=== PATIENT | male | born 1950 | race Caucasian/White ===

== ENCOUNTER 2020-09-29 08:22 | Outpatient (CLI) | payer MEDICARE, OTHER, SELFPAY ==
--- NOTE | ~2020-09-29 | CT_ITS ---
EXAMINATION: CT lung screening DATE: 09/29/2020 08:43 INDICATION: Personal history of nicotine dependence, prior smoker with 60 pack year history TECHNIQUE: Computed tomography (CT) of the chest was performed without intravenous contrast. The dose -length product (DLP) was 442.35 mGy-cm. Automated exposure control and iterative reconstruction tech [employer] were employed. COMPARISON: 06/09/2019 FINDINGS: There are new 5 mm nodules in the left upper lobe on images 31 and 33. A stable 5 mm nodule is seen in the minor fissure. There is moderate emphysema. No pleural effusion or pneumothorax is id entified. There is left-sided enlargement of the heart. Coronary artery atherosclerosis is noted. A d ual lead pacemaker of the left chest wall ends with its leads in the right atrium and right ventricle . There are no pathologically enlarged thoracic lymph nodes. Calcified pulmonary nodules and calcifie d mediastinal lymph nodes are consistent with old granulomatous disease. There is moderate thoracic s pondylosis. IMPRESSION: 1. Lung-RADS category 3: Probably benign. Followup with noncontrast low-dose chest CT in 6 months is recommended. Reviewed, dictated and finalized at location A. INSURANCE CLAIMS ADJUSTER IMPRESSION: 1. Lung-RADS category 3: Probably benign. Followup with noncontrast low-dose ch est CT in 6 months is recommended.
--- NOTE | ~2020-09-29 | US_ITS ---
EXAMINATION: US aorta [facility] scrn DATE: 09/29/2020 09:04 INDICATION: Screening for cardiovascular disease with risk factors of obesity, prior smoking and hype rcholesterolemia. TECHNIQUE: Grayscale, color Doppler, and pulsed Doppler images of the aorta and common iliac arteries were obtained. COMPARISON: None. FINDINGS: The proximal aorta measures 2.7 cm. The mid aorta measures 2.1 cm. The distal aorta measures 2.0 cm. The right common iliac artery measures 1.2 cm. The left common iliac artery measures 1.3 cm. IMPRESSION: 1. Normal caliber abdominal aorta. No aneurysm. Reviewed, dictated and finalized at location A. S TINTER
== END 2020-09-29 08:23 | disposition home or self-care (01) ==
LOC: ANHIMG 08:29
PROVIDERS: PCP Family Medicine; Visit Provider Family Medicine
DX: Z12.2 Encounter for screening for malignant neoplasm of respiratory organs (principal); Z13.6 Encounter for screening for cardiovascular disorders; Z87.891 Personal history of nicotine dependence
CPT/HCPCS: 76706; G0297

== ENCOUNTER 2021-09-19 10:12 | Outpatient (CLI) | payer MEDICARE, OTHER, SELFPAY ==
[2021-09-19 10:35] LABS: Hematocrit 46.2 % (42.0-52.0); Hemoglobin 15.5 g/dL (14.0-18.0); Mean Corpuscular HGB Conc 33.5 g/dl (32-36); Mean Corpuscular Hemoglobin 32.8 pg (26-34); Mean Corpuscular Volume 97.9 fl (80-100); Mean Platelet Volume 10.5 fl (7.4-10.4); Platelet Count Result 222 k/mm3 (150-375); Red Blood Count 4.72 M/mm3 (4.6-6.20); Red Cell Distribution Width 14.4 % (11.5-14.5); White Blood Count 4.6 K/mm3 (4.5-10.0)
[2021-09-19 10:48] LABS: Alanine Aminotransferase 21 U/L (4-50); Albumin Level 4.2 g/dL (3.5-5.1); Alkaline Phosphatase 107 U/L (38-126); Anion Gap 8 mmol/L (8-16); Aspartate Amino Transferase 31 U/L (17-59); Blood Urea Nitrogen 15 mg/dL (9-20); Calcium 9.5 mg/dL (8.4-10.2); Carbon Dioxide 26 mmol/L (22-30); Chloride 104 mmol/L (98-107); Cholesterol 124 mg/dL (0-200); Estimated Glomerular Filt Rate 60; Glucose 119 mg/dL (65-110); HDL Direct 42 mg/dL; Potassium 4.2 mmol/L (3.4-5.0); Sodium 138 mmol/L (137-145); Triglycerides 68 mg/dL (<150)
[2021-09-19 10:49] LABS: Add Urine Microscopic? YES; Appearance Urine Clear (Clear); Bacteria Urine Trace /hpf; Bilirubin Urine Negative (Negative); Blood Urine Negative (Negative); Color Urine Yellow (Yellow); Glucose Urine UA 3+ mg/dL (Negative); Ketones Urine Negative (Negative); Leukocyte Esterase Ur Negative LEU/UL (NEGATIVE); Mucus Urine Rare /lpf; Nitrate Urine Negative (Negative); Protein Urine Negative (Negative); RBC Urine 0-2 /hpf (0-2); Specific Grav Ur 1.021 (1.001-1.035); Squamous Epithelial Cell Urine Rare /hpf (Few); Urobilinogen Urine Negative mg/dL (<2.0); WBC Urine 0-3 /hpf (0-3)
[2021-09-19 10:59] LABS: LDL Cholesterol Direct 58 mg/dL
== END 2021-09-19 10:13 | disposition home or self-care (01) ==
PROVIDERS: PCP Family Medicine; Visit Provider Family Medicine
DX: I11.9 Hypertensive heart disease without heart failure (principal); E78.2 Mixed hyperlipidemia; E03.9 Hypothyroidism, unspecified; Z00.00 Encounter for general adult medical examination without abnormal findings
CPT/HCPCS: 36415; 80053; 80061; 81001; 84443; 85027

== ENCOUNTER 2021-09-26 10:29 | Outpatient (CLI) | payer MEDICARE, OTHER, SELFPAY ==
--- NOTE | ~2021-09-26 | CT_ITS ---
EXAMINATION: CT lung screening DATE: 09/26/2021 10:48 INDICATION: pers hx of nicotine dependence TECHNIQUE: Computed tomography (CT) of the chest was performed without intravenous contrast. Addition al 3D reconstructions utilizing coronal maximum intensity projection (MIP) were performed. Automated exposure control and iterative reconstruction technique were employed. The dose-length product was 42 8.87 mGy-cm. COMPARISON: 09/29/2020 FINDINGS: Moderate emphysema. Subtle small calcified nodules in the right upper lung along with calcified right hilar and mediastinal lymph nodes as well as a few splenic calcifications, all consistent with old g ranulomatous disease. New bandlike region of atelectasis in the right middle lobe along the major fis sure. Interval increase in size of a pair of previously 5 mm nodules in the anterior segment of the l eft upper lobe currently measuring 1.4 and 1.5 cm respectively now becoming contiguous with lobular a nd mildly spiculated margins. Heart size is normal with left atrial enlargement. There are a pair of cardiac asymmetric or/defibrillator leads one terminating at the right atrial appendage and the other at the apex of the right ventricle. Both leads appear disconnected with proximal lead tips projectin g anterior to the lateral left clavicle on the watch crystal edge grinder topogram. No pathologically enlarged thoracic or supraclavicular lymphadenopathy. Gallstones at the dependent fundus of the normal-appearing gallblad attila. Visualized upper abdomen is otherwise unremarkable. Mild thoracic kyphosis with moderate spondyl osis. Chronic mild anterior wedging at T9, T11 and T12. IMPRESSION: 1. Lung-RADS category 4X: Very suspicious. >15% chance of malignancy. Recommend CT-guided biopsy. Dr. Jacobs discussed these findings with the Nathan Nur the PA with Dr. Espino at 2:15 PM. 2. Moderate emphysema. Reviewed, dictated and finalized at location H. RETE SPREADER
== END 2021-09-26 10:30 | disposition home or self-care (01) ==
LOC: ANHIMG 10:32
PROVIDERS: PCP Family Medicine; Visit Provider Family Medicine
DX: Z12.2 Encounter for screening for malignant neoplasm of respiratory organs (principal); Z87.891 Personal history of nicotine dependence; J43.9 Emphysema, unspecified
CPT/HCPCS: 71271

== ENCOUNTER 2021-10-05 01:44 | Outpatient (CLI) | payer MEDICARE, OTHER, SELFPAY ==
[2021-10-03 10:06] VITALS: BMI 42.2
--- NOTE | 2021-10-03 10:18 | PC.NURSE ---
Report to the Outpatient Waiting Room, entrance under the green pavilion located off [facility], at time __0900 on date _10/05/21 . OR Time: __1100 . - You and your visitor will be asked a series of questions to screen for COVID 19 for your protection. - A mask is required within the hospital. - Only one visitor is allowed at this time. Patient visitors will be guided where to wait when not with patient. Preoperative COVID Testing Requirements: No COVID Test needed if: (proof is required; if not received patient will have Rapid Test prior to entry) NPO 6 HOURS TO PROCEDURE - Patient has received COVID Vaccine at least 14 days prior to procedure date or - Patient has positive COVID test result within last 90 days of surgery date. COVID Test needed if above criteria is not met If not COVID vaccinated a COVID test must be conducted within 72 hours of surgery and patient is asked to isolate self from time of testing until procedure. You will go to the [employer] [facility] Testing Site for your COVID testing. The [employer] [facility] is located at the corner of [address] [facility]. You will only be called if COVID results are positive and your surgeon may reschedule your elective surgery date. Patients may have clear liquids (water, carbonated beverages, clear teas, apple juice) until 3 hours prior to surgery with a maximum of 20 ounces. - No food from midnight until time of surgery - Infants may have breast milk until 4 hours before surgery, formula 6 hours prior to surgery. - Children will be allowed to drink immediately following surgery. If applicable, please bring a bottle or sippy cup to assist with drinking. Juice, water, soda, and popsicles are readily available. For infants on formula, please bring formula the day of surgery. Pacifiers are allowed. Take the following medications with a SIP of water the morning of surgery: ___ROUTINE AM MEDS Medications to discontinue per physician PRADAXA 5 DAYS PRE OP Date to take last dose_09/29/21 Please no make-up, nail gabonese, hairspray, perfume, deodorant, or body powder the day of surgery. No jewelry (including any body piercings) or valuables the day of surgery, leave them at home. Please take a shower or bath the night before, or the morning of, surgery with an antibacterial soap. Wear comfortable, loose fitting clothing. Children are encouraged to wear pajamas. - Jewelry must be removed prior to entering the operating room. Rings and piercings that are not removed may be cut off. - The hospital will not accept responsibility for valuables. - Please leave all valuables, including medications, at home the day of surgery. If you are going home after surgery, a licensed bulk driver must drive you home. - NO public transportation without another adult. - We recommend that an adult stay with you for 24 hours following discharge. - We also recommend that you do not drive, make important decision, drink alcoholic beverages, or take any drugs that were not prescribed by your health care provider for at least 24 hours after your discharge time. For Pediatric surgeries, we recommend two adults accompany the child home (only one inside the building at this time). Follow any additional instructions given to you from your surgeon. Telephone instructions given to __PATIENT and asked if any additional questions and then verbalized understanding. Patient advised to call surgeon office or pre surgery nurse liaison [phone] if any additional questions.
--- NOTE | 2021-10-03 10:20 | PC.NURSE ---
Report to the Outpatient Waiting Room, entrance under the green pavilion located off [facility], at time 0900 on date ___10/05/21____. OR Time: __1099 . - You and your visitor will be asked a series of questions to screen for COVID 19 for your protection. - A mask is required within the hospital. - Only one visitor is allowed at this time. Patient visitors will be guided where to wait when not with patient. Preoperative COVID Testing Requirements: No COVID Test needed if: (proof is required; if not received patient will have Rapid Test prior to entry) - Patient has received COVID Vaccine at least 14 days prior to procedure date or - Patient has positive COVID test result within last 90 days of surgery date. COVID Test needed if above criteria is not met If not COVID vaccinated a COVID test must be conducted within 72 hours of surgery and patient is asked to isolate self from time of testing until procedure. You will go to the [employer] [facility] Testing Site for your COVID testing. The [employer] [facility] Testing [facility] is located at the corner of [address] [facility]. You will only be called if COVID results are positive and your surgeon may reschedule your elective surgery date. Patients may have clear liquids (water, carbonated beverages, clear teas, apple juice) until 3 hours prior to surgery with a maximum of 20 ounces. - No food from midnight until time of surgery - Infants may have breast milk until 4 hours before surgery, infant formula 6 hours prior to surgery. - Children will be allowed to drink immediately following surgery. If applicable, please bring a bottle or sippy cup to assist with drinking. Juice, water, soda, and popsicles are readily available. For infants on formula, please bring formula the day of surgery. Pacifiers are allowed. Take the following medications with a SIP of water the morning of surgery: _ALL ROUTINE AM MEDS NPO 6 HOURS TO PROCEDURE Medications to discontinue per physician PRADAXA 5 DAYS PRE OP Date to take last dose Please no make-up, nail greek, hairspray, perfume, deodorant, or body powder the day of surgery. No jewelry (including any body piercings) or valuables the day of surgery, leave them at home. Please take a shower or bath the night before, or the morning of, surgery with an antibacterial soap. Wear comfortable, loose fitting clothing. Children are encouraged to wear pajamas. - Jewelry must be removed prior to entering the operating room. Rings and piercings that are not removed may be cut off. - The hospital will not accept responsibility for valuables. - Please leave all valuables, including medications, at home the day of surgery. If you are going home after surgery, a licensed student truck driver must drive you home. - NO public transportation without another adult. - We recommend that an adult stay with you for 24 hours following discharge. - We also recommend that you do not drive, make important decision, drink alcoholic beverages, or take any drugs that were not prescribed by your health care provider for at least 24 hours after your discharge time. For Pediatric surgeries, we recommend two adults accompany the child home (only one inside the building at this time). Follow any additional instructions given to you from your surgeon. Telephone instructions given to ___PATIENT and asked if any additional questions and then verbalized understanding. Patient advised to call surgeon office or pre surgery nurse liaison [phone] if any additional questions.
[2021-10-05] VITALS (9 sets, daily range): BP systolic 90–118; BP diastolic 53–85; PULSE 46–105; RESP 16–20; TEMP 36–36.1; O2SAT 95–100
--- NOTE | ~2021-10-05 | XR_ITS ---
EXAMINATION: XR chest 1V portable DATE: 10/05/2021 13:09 INDICATION: Left lung nodule status post percutaneous biopsy. TECHNIQUE: A single frontal view of the chest was obtained. COMPARISON: Single view at 12:20 PM FINDINGS: There is a nodule in left lung upper lobe. No pleural effusion or pneumothorax. The heart s ize is normal. There are retained pacer leads in right atrium and right ventricle. IMPRESSION: 1. Nodule in left lung upper lobe suspicious for primary bronchogenic carcinoma. Reviewed, dictated and finalized at location A. OF WOMEN IMPRESSION: 1. Nodule in left lung upper lobe suspicious for primary bronchogenic carcinoma .
--- NOTE | ~2021-10-05 | CT_ITS ---
EXAMINATION: CT biopsy lung w/imaging DATE: 10/05/2021 12:35 INDICATION: Solitary pulmonary nodule. TECHNIQUE: The procedure including the risks, benefits, and alternatives and possibility of chest tub e placement were discussed with the patient. Risks discussed included infection, approximately 1/20 r isk of symptomatic hemorrhage beyond mild hemoptysis, approximately 1/3 risk of pneumothorax, approxi mately 1/10 risk of pneumothorax severe enough to warrant chest tube placement, and rarely . The patient understood the risks and agreed to proceed. The patient was placed supine. The skin overlyi ng the left chest was prepped and draped in sterile fashion. Anesthetic was administered with 1% lid ocaine subcutaneously. A 19 gauge outer needle was advanced under CT guidance to the lesion of inter est. A 20 gauge core biopsy needle was then used to obtain 3 core biopsy specimens. The needle was re moved and the entry site was cleaned and dressed. The mA was adjusted according to patient size. Iter ative reconstruction technique was employed. The dose-length product was 331.40 mGy-cm. There were n o immediate complications. FINDINGS: CT images demonstrate the outer needle tip adjacent to a 2.1 cm nodule in left lung upper l obe. IMPRESSION: 1. CT-guided core needle biopsy of a left lung upper lobe nodule. Reviewed, dictated and finalized at location A. CAL RECEPTIONIST ASSISTANT
--- NOTE | ~2021-10-05 | XR_ITS ---
EXAMINATION: XR chest 1V portable DATE: 10/05/2021 15:28 INDICATION: Left lung nodule status post percutaneous biopsy. TECHNIQUE: A single frontal view of the chest was obtained. COMPARISON: Chest single view at 1:04 PM FINDINGS: There is a small left pneumothorax. There is a nodule in left lung upper lobe. There is mil d atelectasis in the lower lung zones. No pleural effusion. The heart size is normal. There are retai leonor pacer wires are in nature the right ventricle. IMPRESSION: 1. Nodule in left lung upper lobe suspicious for primary bronchial carcinoma. 2. Small left pneumothorax status post lung biopsy. The patient describes 2/10 pain at rest and 5/10 pain with sitting up. He denies shortness of breath. Oxygen saturation is normal. The patient underst ands to go to the emergency room if he develops worsened shortness of breath or chest pain. His will be home with him. Reviewed, dictated and finalized at location A. QUE CLOCKS REPAIRER IMPRESSION: 1. Nodule in left lung upper lobe suspicious for primary bronchial carcinoma. 2. Small left pneumothorax status post lung biopsy. The patient describes 2/10 pain at rest and 5/10 pain with sitting up. He denies shortness of breath. Oxyg en saturation is normal. The patient understands to go to the emergency room if he develops worsened shortness of breath or chest pain. His will be home with him.
--- NOTE | ~2021-10-05 | XR_ITS ---
EXAMINATION: XR chest 1V DATE: 10/05/2021 12:22 INDICATION: Left lung nodule status post percutaneous biopsy. TECHNIQUE: A single frontal view of the chest was obtained. COMPARISON: Chest 2 views 07/24/2013, chest CT 09/26/2021 FINDINGS: There is a nodule in left upper lobe. A calcified right lung nodule is consistent with old granulomatous disease. No pleural effusion or pneumothorax. The heart size is normal. There are retai leonor pacer leads in right atrium and right ventricle. IMPRESSION: 1. Nodule in left lung upper lobe suspicious for primary bronchogenic carcinoma. Reviewed, dictated and finalized at location A. K BROKER SUPERVISOR IMPRESSION: 1. Nodule in left lung upper lobe suspicious for primary bronchogenic carcinoma .
[2021-10-05 10:20] LABS: INR 1.2; Prothrombin Time 14.8 Seconds (11.1-14.7)
--- NOTE | 2021-10-05 15:48 | SUR.PHASEII ---
dr carey came by and saw pt and said he is good to go home. pt meets discharge criteria and is waiting for a ride.
== END 2021-10-05 15:40 | disposition home or self-care (01) ==
PROVIDERS: PCP Family Medicine; Visit Provider Radiology Diagnostic Radiology
PROC: BB24ZZZ Computerized Tomography (CT Scan) of Bilateral Lungs (ICD-10-PCS; CPT 32408; principal; 2021-10-05 11:00)
DX: R91.1 Solitary pulmonary nodule (principal)
CPT/HCPCS: 32408; 36415; 71045; 85610; 88305

== ENCOUNTER 2021-10-25 02:04 | Outpatient (CLI) | payer MEDICARE, OTHER, SELFPAY ==
[2021-10-18 09:45] VITALS: BMI 41.5
--- NOTE | 2021-10-18 09:50 | PC.NURSE ---
Report to the Outpatient Waiting Room, entrance under the green pavilion located off [facility], at time ___0900____ on date _10/25/21 . OR Time: ___11 . - You and your visitor will be asked a series of questions to screen for COVID 19 for your protection. - A mask is required within the hospital. - NO visitors are allowed at this time. Patient visitors will be guided where to wait when not with patient. Preoperative COVID Testing Requirements: No COVID Test needed if: (proof is required; if not received patient will have Rapid Test prior to entry) - Patient has received COVID Vaccine at least 14 days prior to procedure date or - Patient has positive COVID test result within last 90 days of surgery date. COVID Test needed if above criteria is not met If not COVID vaccinated a COVID test must be conducted within 72 hours of surgery and patient is asked to isolate self from time of testing until procedure. You will go to the [employer] [facility] Testing Site for your COVID testing. The [employer] [facility] Testing [facility] is located at the corner of [address] [facility]. You will only be called if COVID results are positive and your surgeon may reschedule your elective surgery date. - No food/liquids from 0500 until time of procedure - Infants may have breast milk until 4 hours before surgery, infant formula 6 hours prior to surgery. - Children will be allowed to drink immediately following surgery. If applicable, please bring a bottle or sippy cup to assist with drinking. Juice, water, soda, and popsicles are readily available. For infants on formula, please bring formula the day of surgery. Pacifiers are allowed. Take the following medications with a SIP of water the morning of surgery: __REGULAR HOME MEDS Medications to discontinue per physician _PRADAXA - 5 DAYS PRIOR TO PROCEDURE Date to take last dose 10/19/21 Please no make-up, nail danish, hairspray, perfume, deodorant, or body powder the day of surgery. No jewelry (including any body piercings) or valuables the day of surgery, leave them at home. Please take a shower or bath the night before, or the morning of, surgery with an antibacterial soap. Wear comfortable, loose fitting clothing. Children are encouraged to wear pajamas. - Jewelry must be removed prior to entering the operating room. Rings and piercings that are not removed may be cut off. - The hospital will not accept responsibility for valuables. - Please leave all valuables, including medications, at home the day of surgery. If you are going home after surgery, a licensed pharmacy delivery driver must drive you home. - NO public transportation without another adult. - We recommend that an adult stay with you for 24 hours following discharge. - We also recommend that you do not drive, make important decision, drink alcoholic beverages, or take any drugs that were not prescribed by your health care provider for at least 24 hours after your discharge time. For Pediatric surgeries, we recommend two adults accompany the child home (only one inside the building at this time). Follow any additional instructions given to you from your surgeon. Telephone instructions given to ____PT and asked if any additional questions and then verbalized understanding. Patient advised to call surgeon office or pre surgery nurse liaison [phone] if any additional questions.
[2021-10-25] VITALS (12 sets, daily range): BP systolic 89–128; BP diastolic 59–90; PULSE 63–85; RESP 16–19; O2SAT 98–100
--- NOTE | ~2021-10-25 | XR_ITS ---
EXAMINATION: XR chest 1V DATE: 10/25/2021 11:51 INDICATION: Left lung nodule status post percutaneous biopsy. TECHNIQUE: A single frontal view of the chest was obtained. COMPARISON: Chest single view 10/05/2021 FINDINGS: There is a nodule left lung upper lobe. A calcified right lung nodule and calcified mediast inal lymph nodes are consistent with old granulomatous disease. There is a small left hydropneumothor ax. The heart size is normal. There are retained leads in right atrium and right ventricle. IMPRESSION: 1. Nodule in left lung upper lobe suspicious for primary bronchogenic carcinoma. 2. Small left hydropneumothorax. Reviewed, dictated and finalized at location A. R QUALITY SPECIALIST IMPRESSION: 1. Nodule in left lung upper lobe suspicious for primary bronchogenic carcinoma . 2. Small left hydropneumothorax.
--- NOTE | ~2021-10-25 | XR_ITS ---
EXAMINATION: XR chest 1V portable DATE: 10/25/2021 12:46 INDICATION: Left lung nodule status post percutaneous biopsy. TECHNIQUE: A single frontal view of the chest was obtained. COMPARISON: Chest single view at 11:49 AM FINDINGS: There is a nodule in left lung upper lobe. There is a small left hydropneumothorax. The hea rt size is normal. There are retained leads in right atrium and right ventricle. IMPRESSION: 1. Nodule in left lung upper lobe suspicious for primary bronchogenic carcinoma. 2. Stable small left hydropneumothorax. Reviewed, dictated and finalized at location A. TH NAVIGATOR IMPRESSION: 1. Nodule in left lung upper lobe suspicious for primary bronchogenic carcinoma . 2. Stable small left hydropneumothorax.
--- NOTE | ~2021-10-25 | CT_ITS ---
EXAMINATION: CT biopsy lung w/imaging DATE: 10/25/2021 11:42 INDICATION: Left lung upper lobe nodule. TECHNIQUE: The procedure including the risks, benefits, and alternatives and possibility of chest tub e placement were discussed with the patient. Risks discussed included infection, hemorrhage, and pneu mothorax. The patient understood the risks and agreed to proceed. The patient was placed supine. The skin overlying the left chest was prepped and draped in sterile fashion. Anesthetic was administere d with 1% lidocaine subcutaneously. A 19 gauge outer needle was advanced under CT guidance to the le justen of interest. A 20 gauge core biopsy needle was then used to obtain 3 core biopsy specimens. The needle was removed and the entry site was cleaned and dressed. The mA was adjusted according to patie nt size. Iterative reconstruction technique was employed. The dose-length product was 167.45 mGy-cm. There were no immediate complications. FINDINGS: Images before the start of the biopsy demonstrated a small left pleural effusion and tiny p neumothorax. CT images demonstrate the outer needle tip adjacent to a dumbbell-shaped 2.4 x 1.6 cm no dule at left lung upper lobe. IMPRESSION: 1. CT-guided core needle biopsy of a left upper lobe nodule. 2. Small left hydropneumothorax present before the biopsy. Reviewed, dictated and finalized at location A. DS EDITOR
--- NOTE | ~2021-10-25 | XR_ITS ---
XR chest 1V portable 10/25/2021 15:13 Indication: Post image guided left biopsy. Follow-up pneumothorax. Procedure: AP portable chest Comparison: 10/25/2021 Findings: Heart size normal. Mild interstitial edema. Small left hydropneumothorax. Left upper lobe n odule reidentified, concerning for bronchogenic carcinoma. Impression: 1: Small residual left hydropneumothorax. 2: Persistent left upper lobe nodule, suspicious for bronchogenic carcinoma. 3: Mild interstitial edema. Reviewed, dictated and finalized at location B. AINER FILLER Impression: 1: Small residual left hydropneumothorax. 2: Persistent left upper lobe nodule, suspicious for bronchogenic carcinoma. 3: Mild interstitial edema.
--- NOTE | 2021-10-25 12:44 | SUR.PHASEII ---
1240 PORTABLE CHEST XRAY TAKEN
--- NOTE | 2021-10-25 15:02 | SUR.PHASEII ---
1502 PORTABLE CHEST XRAY TAKEN.
--- NOTE | 2021-10-25 15:36 | SUR.PHASEII ---
[address] BOYD PER PHONE. DR MARSHALL TO DISCHARGE PT HOME. MEETS CRITERIA.
== END 2021-10-25 15:30 | disposition home or self-care (01) ==
PROVIDERS: Radiology Diagnostic Radiology; PCP Family Medicine; Visit Provider Physician Assistant
PROC: BB24ZZZ Computerized Tomography (CT Scan) of Bilateral Lungs (ICD-10-PCS; CPT 32408; principal; 2021-10-25 11:00)
DX: R91.1 Solitary pulmonary nodule (principal)
CPT/HCPCS: 32408; 71045; 81210; 81235; 81275; 81276; 88271; 88274; 88275; 88305; 88342; 88360; 88381